=== PATIENT | female | born 1985 | race Caucasian/White ===

== ENCOUNTER 2017-12-26 17:32 | Outpatient (CLI) | payer BC ==
[~2017-12-26] VITALS: Ht 162.6 cm; Wt 107.5 kg
--- NOTE | 2017-12-26 18:04 | Progress Note ---
Progress Note Date of Service December 26, 2017. Progress Note 32 F P1011 at 38.6 weeks seen in L&D for decreased movement. Was seen in office yesterday and had NST which was Cat 1. No problems. Will place on monitor for NST. No leakage of fluid or bleeding. No headache or visual changes. BP stable. Cat 1 NST. Will discharge home and advised to continue kick counts.
[2017-12-26 18:48] VITALS: Ht 162.6 cm; Wt 107.5 kg
[2017-12-26] MEDS ORDERED: PRENTAB26 PO (18:52)
[2017-12-26] MEDS ORDERED: CHOL1CHW10 (18:52)
== END 2017-12-26 18:25 | disposition home or self-care (01) ==
LOC: C.LD 17:32 → C.OPB 17:32
PROVIDERS: ATTEND Obstetrics & Gynecology
DX: O36.8130 Decreased fetal movements, third trimester, not applicable or unspecified (principal); Z3A.38 38 weeks gestation of pregnancy

== ENCOUNTER 2018-01-03 06:42 | Inpatient (IN) | payer BC ==
[~2018-01-03] VITALS: Ht 162.6 cm; Wt 108.0 kg
[~2018-01-03 06:42] MED LIST: CHOL1CHW10; PRENTAB26 PO
[2018-01-07] MEDS ORDERED: LACTATED RINGER'S 1000ML 1,000 ML IV PRN (08:04)
[2018-01-07] MEDS ORDERED: LACTATED RINGER'S 1000ML 1,000 ML IV SCH (08:04)
[2018-01-07] MEDS ORDERED: PENICILLIN G POTASSIUM IV 6 MU in DEXTROSE 5% 250ML 250 ML IV ONE (08:15)
[2018-01-07 08:30] LABS: HEMOGLOBIN 10.7 g/dL (12.0-16.0); MEAN CELL VOLUME 88.6 fL (80-100); MEAN CORPUSCULAR HEMOGLOBIN 29.6 pg (25-34); MEAN CORPUSCULAR HGB CONC 33.4 g/dl (32-36); MEAN PLATELET VOLUME 9.4 fL (7.4-10.4); NUCLEATED RED BLOOD CELL ABS 0.07 K/uL (0-0); PLATELET COUNT 178 K/uL (130-400); RED CELL DISTRIBUTION WIDTH SD 51.3 fL (36.4-46.3); WHITE BLOOD COUNT 10.74 K/uL (4.8-10.8)
[2018-01-07] MEDS ORDERED: LACTATED RINGER'S 1000ML 500 ML IV PRN ×2 (08:55→14:58)
[2018-01-07 08:57] VITALS: Ht 162.6 cm; Wt 108.0 kg
[2018-01-07] MEDS ORDERED: OXYTOCIN 30 UNITS/500ML NSS IV PRN ×2 (09:00→19:15)
[2018-01-07] MEDS: PENICILLIN G POTASSIUM IV 3 MU in DEXTROSE 5% 100ML 100 ML IV PRN ×2 (12:46→16:31)
[2018-01-07] MEDS ORDERED: EpHEDrine SULFATE INJ 50 MG/ML AMP ONE (14:05)
[2018-01-07] MEDS ORDERED: BUPIVACAINE 0.25% 30 ML VIAL ONE ×2 (14:05→18:01)
[2018-01-07] MEDS ORDERED: FENTANYL 2MCG/ML ROPIV 1.25MG/ML 100ML BAG ONE (14:06)
[2018-01-07] MEDS ORDERED: FENTANYL CITRATE INJ 50 MCG/1 ML 2 ML VIAL ONE ×2 (14:06→18:09)
[2018-01-07] MEDS ORDERED: NALOXONE HCL INJ 1 MG in SODIUM CHLORIDE 0.9% 1000ML 1,000 ML IV PRN ×4 (14:58)
[2018-01-07] MEDS ORDERED: DiphenhydrAMINE HCL 50 MG/ML VIAL IV PRN (15:00)
[2018-01-07] MEDS ORDERED: METOCLOPRAMIDE HCL INJ 20 MG in SODIUM CHLORIDE 0.9% 50ML 50 ML IV PRN (15:00)
[2018-01-07] MEDS ORDERED: ONDANSETRON INJ 2 MG/ML 2 ML VIAL IV PRN (15:00)
[2018-01-07] MEDS ORDERED: PROMETHAZINE HCL INJ 12.5 MG in SODIUM CHLORIDE 0.9% 50ML 50 ML IV PRN (15:00)
[2018-01-07] MEDS ORDERED: NALBUPHINE HCL INJ 10 MG/ML AMP IV PRN (15:00)
[2018-01-07] MEDS ORDERED: EpHEDrine SULFATE INJ 50 MG/ML AMP IV PRN (15:00)
[2018-01-07] MEDS ORDERED: NALOXONE HCL INJ 0.4 MG/1 ML VIAL/CARP IV PRN (15:00)
[2018-01-07] MEDS ORDERED: FENTANYL 2MCG/ML ROPIV 1.25MG/ML 100ML BAG EPI PRN (15:00)
--- NOTE | 2018-01-07 18:17 | Anesthesiology Progress Note ---
Anesthesia Progress Note Date of Service January 07, 2018. Progress Notes Called by L&D nurse re: pt c/o more pain now. Pt seen and evaluated. Pain is more pressure like down on her pelvic area; baby station has moved from -3 to - 1. Epidural level at around T10. 100mcg of fentanyl given through her epidural along with 5ml of 0.25% bupivacaine. VSS.
[2018-01-07] MEDS ORDERED: LANOLIN OINT EXT PRN (19:15)
[2018-01-07] MEDS ORDERED: HYDROCORTISONE ACETATE 25 MG SUPP PR PRN (19:15)
[2018-01-07] MEDS ORDERED: DIPHTHERIA/TETANUS/PERTUSSIS 0.5 ML SYR/VIAL IM. ONE (19:15)
[2018-01-07] MEDS ORDERED: OXYCODONE/ACETAMINOPHEN 5-325 TAB PO PRN (19:15)
[2018-01-07] MEDS ORDERED: ACETAMINOPHEN 325 MG TAB PO PRN (19:15)
[2018-01-07] MEDS ORDERED: SUPERCREAM 0.870 % 15GM JAR EXT PRN (19:15)
[2018-01-07] MEDS ORDERED: BENZOCAINE 20% AER SPR 82.5 GM CAN EXT PRN (19:15)
[2018-01-07] MEDS: DOCUSATE SODIUM 100 MG CAP PO SCH (20:00)
--- NOTE | 2018-01-07 20:08 | DELIVERY SUMMARY ---
DATE OF OPERATION: 01/07/2018 TIME OF DELIVERY: 1846. DELIVERY OF PLACENTA: 1848. DELIVERY NOTE: The patient is a 32-year-old 3, para 1 at 40 weeks and 4 days gestation, who was admitted to labor and delivery on the morning of 01/07/2018 for a scheduled induction of labor secondary to being postdate. On admission, she was found to be 3 cm, 40% effaced and -3 station. She was begun on penicillin for GBS prophylaxis. Oxytocin per protocol has begun for labor induction. She received an epidural for anesthesia. Artificial rupture of membranes was performed at 1517 with a large amount of clear amniotic fluid noted. She reached complete dilation at 1834 with the desired push. The pushed to delivery at 1847. She delivered a viable female in the left occiput anterior position to a midline episiotomy. Nuchal cord x1 was reduced at delivery. The baby was then delivered and placed on the patient's abdomen. Cord was clamped x2 and cut. Apgars were 8 at 1 minute and 9 at 5 minutes. Please see nursing notes for further baby assessment. Cord blood was then obtained and intact placenta with 3-vessel cord was delivered at 184. Oxytocin infusion was then begun. The lower uterine segment and vagina were cleared of any blood clots and debris. Exploration of the perineum noted a midline episiotomy with no extensions. The episiotomy was repaired with 2-0 and 3-0 Vicryl sutures in layers. Excellent hemostasis was noted. No other lacerations were seen. Excellent sphincter tone was noted on digital rectal exam with no suture noted in the rectal wall. Estimated blood loss was 300 mL. All sponge, instrument, and needle counts were found to be correct x2. Both patient and baby tolerated the delivery well and were in recovery with stable vital signs. I attest to the content of the Intraoperative Record and any orders documented therein. Any exception s are noted below.
--- NOTE | 2018-01-07 20:33 | Anesthesia Procedure Note ---
Anesthesia Epidural Removal Nt Date & Time January 07, 2018 at 20:33 Vital Signs Pain Intensity: 9.0 Notes Mental Status: alert / awake / arousable, participated in evaluation Nausea / Vomiting: adequately controlled Pain: adequately controlled Airway Patency, RR, SpO2: stable & adequate BP & HR: stable & adequate Hydration State: stable & adequate Neuraxial Anesthesia: was administered Anesthetic Complications: no major complications apparent, pt satisfied with anesthetic care Epidural: removed without complications, with tip intact
[2018-01-07 21:00] VITALS: BP 111/78; PULSE 89; TEMP 36.7; O2SAT 100
[2018-01-08 00:05] VITALS: BP 118/71; PULSE 81; TEMP 37.3; O2SAT 97
[2018-01-08] MEDS: IBUPROFEN 600 MG TAB PO PRN ×5 (01:22→19:31)
[2018-01-08 04:00] VITALS: BP 108/69; PULSE 84; TEMP 36.9; O2SAT 97
[2018-01-08 06:29] LABS: HEMATOCRIT 26.7 % (37-47); HEMOGLOBIN 8.8 g/dL (12.0-16.0)
[2018-01-08 07:03] VITALS: BP 102/68; PULSE 84; TEMP 36.7
[2018-01-08] MEDS: DOCUSATE SODIUM 100 MG CAP PO SCH ×2 (07:52→19:31)
[2018-01-08] MEDS: PRENATAL VITAMIN TAB PO SCH (07:52)
[2018-01-08] MEDS: FERROUS SULFATE 325 MG TAB PO SCH (07:54)
--- NOTE | 2018-01-08 09:34 | OB/GYN Progress Note ---
KILN BURNER HELPER Progress Note Date of Service January 08, 2018. Subjective conversation w/ patient, physical exam Ambulation: limited ambulation Voiding: no voiding problems Passing Gas: No Diet Tolerance: Regular Diet Lochia: Small Feeding Type: Breast Feeding Notes: some passage of small clots some lightheadedness when getting up Review of Systems Constitutional: + weakness Objective Vital Signs Date Time Temp Pulse Resp B/P (MAP) Pulse Ox O2 Delivery O2 Flow Rate FiO2 01/08/18 08:00 Room Air 01/08/18 07:03 36.7 84 17 102/68 (79) 01/08/18 04:00 36.9 84 16 108/69 (82) 97 Room Air 01/08/18 00:05 37.3 81 16 118/71 (87) 97 Room Air 01/08/18 00:05 97 Room Air 01/07/18 21:00 36.7 89 18 111/78 (89) 100 Room Air 01/07/18 21:00 100 Room Air Physical Exam General Appearance: WELL-APPEARING Fundus: Firm Extremities: non-tender, normal inspection, no pedal edema, no calf tenderness Laboratory Results Last 24 Hours Test 01/08/18 06:18 01/08/18 09:09 Hemoglobin 8.8 g/dL Hematocrit 26.7 % Bedside Glucose 90 mg/dl Assessment and Plan Post- Day Number: 1 Continue Routine Care: repeat h/h tonight encourage fluids
[2018-01-08 11:05] VITALS: BP 121/82; PULSE 85; TEMP 36.6; O2SAT 97
[2018-01-08 14:30] VITALS: BP 119/77; PULSE 89; TEMP 36.7; O2SAT 98
[2018-01-08 18:18] LABS: HEMOGLOBIN 9.3 g/dL (12.0-16.0)
[2018-01-08] MEDS ORDERED: BISACODYL 5 MG TABEC PO SCH (20:00)
[2018-01-08 23:35] VITALS: BP 118/80; PULSE 81; TEMP 36.5; O2SAT 98
[2018-01-09] MEDS: IBUPROFEN 600 MG TAB PO PRN ×3 (02:30→10:51)
[2018-01-09 05:35] LABS: HEMOGLOBIN 8.3 g/dL (12.0-16.0); MEAN CELL VOLUME 89.6 fL (80-100); MEAN CORPUSCULAR HEMOGLOBIN 29.7 pg (25-34); MEAN CORPUSCULAR HGB CONC 33.2 g/dl (32-36); MEAN PLATELET VOLUME 8.9 fL (7.4-10.4); PLATELET COUNT 167 K/uL (130-400); RED CELL DISTRIBUTION WIDTH CV 16.2 % (11.5-14.5); RED CELL DISTRIBUTION WIDTH SD 52.8 fL (36.4-46.3)
[2018-01-09] MEDS ORDERED: BISACODYL 10 MG SUPP PR PRN (07:00)
[2018-01-09] MEDS: DOCUSATE SODIUM 100 MG CAP PO SCH (07:59)
[2018-01-09] MEDS: FERROUS SULFATE 325 MG TAB PO SCH (07:59)
[2018-01-09] MEDS: PRENATAL VITAMIN TAB PO SCH (07:59)
[2018-01-09 08:00] VITALS: BP 103/67; PULSE 75; TEMP 36.6
--- NOTE | 2018-01-09 08:43 | OB/GYN Progress Note ---
FIELD SAMPLING TECHNICIAN Progress Note Date of Service January 09, 2018. Subjective conversation w/ patient, physical exam Ambulation: ambulating normally Voiding: no voiding problems Passing Gas: Yes Diet Tolerance: Regular Diet Lochia: Moderate Pain: 4/10 Notes: Doing well, no concerns. Pain well controlled. Tolerating regular diet. Ambulating without difficulty. Objective Vital Signs Date Time Temp Pulse Resp B/P (MAP) Pulse Ox O2 Delivery O2 Flow Rate FiO2 01/09/18 08:00 36.6 75 20 103/67 (79) 01/08/18 23:35 Room Air 01/08/18 23:35 36.5 81 18 118/80 (93) 98 Room Air 01/08/18 14:30 98 Room Air 01/08/18 14:30 36.7 89 18 119/77 (91) 98 Room Air 01/08/18 11:05 36.6 85 20 121/82 (95) 97 Room Air Physical Exam General Appearance: WELL-APPEARING Respiratory/Chest: chest non-tender, lungs clear Cardiovascular: regular rate, rhythm Abdomen: normal bowel sounds, soft Fundus: Firm Extremities: normal range of motion, non-tender, no calf tenderness Laboratory Results Last 24 Hours Test 01/08/18 09:09 01/08/18 18:05 01/09/18 05:16 Bedside Glucose 90 mg/dl Hemoglobin 9.3 g/dL 8.3 g/dL Hematocrit 28.0 % 25.0 % White Blood Count 13.70 K/uL Red Blood Count 2.79 M/uL Mean Corpuscular Volume 89.6 fL Mean Corpuscular Hemoglobin 29.7 pg Mean Corpuscular Hemoglobin Concent 33.2 g/dl RDW Standard Deviation 52.8 fL RDW Coefficient of Variation 16.2 % Platelet Count 167 K/uL Mean Platelet Volume 8.9 fL Assessment and Plan Post- Day Number: 2 Continue Routine Care: -D/C home today -F/U in 6 weeks.
[2018-01-09] MEDS ORDERED: MTR600X PO (08:44)
--- NOTE | 2018-01-09 08:45 | Discharge Instructions ---
Discharge Instructions Date of Service January 09, 2018. Admission Reason for Admission: Induction Discharge Discharge Diagnosis / Problem: Vaginal Delivery Discharge Goals Goal(s): Routine recovery after delivery Medications Continue Dispensed Medications: supercream, dermaplast, tucks, lansinoh Activity Recommendations Activity Limitations: per Instructions/Follow-up section . Instructions / Follow-Up Instructions / Follow-Up ACTIVITY RECOMMENDATIONS: * Gradual return to full activity over the next 2-3 weeks. * No lifting - nothing heavier than baby over the next 2-3 weeks. * Do not engage in vigorous exercise, sexual activity or sports until cleared by your physician. * Do not drive or operate any motorized equipment until cleared by your physician. * You may shower/bathe daily. BREAST CARE: If you are not breast feeding: * Wear a supportive bra 24 hours a day for one to two weeks. * Avoid stimulating your breasts and nipples as much as possible during the first few weeks after delivery. * When taking a shower, have the warm water hit your back, not breasts. * When your breasts feel full, apply ice packs. Usually three to four times a day helps ease the discomfort. * Take a mild pain medication (Tylenol/Motrin) when you are uncomfortable. If breast feeding: * Use breast milk to lubricate nipples. Lansinoh cream may be used for sore nipples. You do not need to remove cream prior to breast feeding. If using a different brand of cream, check the label for directions regarding removal of cream prior to nursing. * Wear a supportive bra. * If having problems with breasts or breast feeding, call a software developer consultant or your health care provider. EPISIOTOMY CARE: After delivery, if you have an episiotomy (stitches), the following steps will ease discomfort and aid healing. * For the first 24 hours after delivery, place ice packs next to your episiotomy to help reduce swelling. * After the first 24 hour-period, sitz baths, either portable or in the tub, are suggested. A shower with a shower arm sprayed over the episiotomy may be comforting. * Nancy care should be done after each voiding and bowel movement. Squirt warm water from a plastic bottle over the perineum (region of the body between the anus and urinary opening) and pat dry. * Use Dermoplast to ease discomfort. Shake container. [place] directly over the episiotomy. * Place a Tucks on a clean sanitary pad next to your episiotomy. OVER THE COUNTER MEDICATION: * For discomfort or pain, you may use Acetaminophen (Tylenol), Ibuprofen (Advil ), or Naproxen (Aleve) following the package directions. * For constipation you may use Colace following the package directions. SPECIAL CARE INSTRUCTIONS: When you are discharged from the hospital, it is important for you to follow the instructions listed below: * During the first week at home, you should be able to care for yourself and your baby. In addition, the usual light household activities are encouraged. * Limit your activities to the way you feel. Do not try to clean the house or move furniture. Be sensible. * If you actively engage in sports and have done so up until the time of your delivery, you may resume these activities as soon as you feel able. This may take up to one month or even longer. Use good judgment. * Continue to take your vitamins for at least six weeks after the of your baby. * Your diet need not be limited unless you were on a special diet before your delivery. Breast-feeding mothers need around 2500 calories per day and at least 64-80 ounces of fluid per day (8 to 10 glasses). * You should eat foods from the four major food groups. Crash diets or fad diets are to be avoided. Eating lean meats, fresh fruits and vegetables, low-fat dairy products, high fiber foods and a regular exercise program, will help you get back to your pre- weight without putting your health at risk. * Constipation is sometimes a problem after delivery. Take a mild laxative as needed. If breast feeding, Milk of Magnesia is acceptable to use. You may use a suppository or Fleets enema if no episiotomy. * A daily shower or tub bath is suggested. Be sure to thoroughly and gently dry the perineum. * A bloody vaginal discharge will usually continue until around four weeks post . A small amount of bleeding may continue for as long as six weeks. Vaginal discharge changes from the bright red bleeding after delivery to pink then brownish and finally yellowish-pink before becoming white and disappearing. * Bleeding may increase with activity. Your first period may come in 4-8 weeks. If you are breast feeding, your period may be delayed even longer. * [place] (sex) can begin whenever both you and your partner feel comfortable and do not have any form of genital infection. It is recommended that you wait until after your return appointment and discuss with your physician. If you have questions, please talk to your health care practitioner. A condom should be used to prevent infection and . * Foreplay, gentle intercourse and lubrication is very important the first several times to prevent pain. A water-based lubricant such as K-Y jelly or Astroglide may be used. * Tampons may be used six weeks after delivery. * Douching should be avoided for 6 weeks after delivery. * If you have RH negative blood and your baby is RH positive, you will receive RHOGAM by injection prior to discharge. The nurse will give you a card to keep with you that has the date and place that you received RHOGAM after delivery. * During your care, you had a Rubella screen done to check for the presence of rubella antibodies in your blood. If your test was negative, you will receive a Rubella vaccine prior to discharge. This vaccine may cause a fever, soreness at the injection site and flu-like symptoms. If these symptoms persist, notify your health care practitioner. is not advised for three months after a Rubella vaccine. There is a higher chance of having a baby with defects if conceived within three months of getting the vaccine. * If you were discharged 24 hours from delivery or before 48 hours: Visiting nurses will come to your home 48 hours after discharge to assess you and your baby. The visiting nurse will meet with you while you are in the hospital to arrange a time and get directions to your home. * Verbalizes understanding of car seat law as reviewed with patient nursing. * Car Seat hand-out given and reviewed with patient by nursing. * Shaken baby information reviewed with patient by nursing. Call you doctor if: * Heavy bleeding (saturating several pads an hour) or passing clots the size of your fist. * A fever >101 degrees F (38.3 degrees C) on two occasions four hours apart and/or chills. * Unusual pain in the pelvic or vaginal areas. * "Baby Blues" lasting longer than two weeks. If you have any questions or concerns, call your health care practitioner at . FOLLOW-UP VISIT: * Please call the office at to schedule a 6 week examination. It is important you keep this appointment. * It is important for you to make arrangements for either yearly or twice yearly check-ups thereafter. Current Hospital Diet Patient's current hospital diet: Regular OB Diet Discharge Diet Recommended Diet: Regular OB Diet Pending Studies Studies pending at discharge: no Medical Emergencies . Who to Call and When: Medical Emergencies: If at any time you feel your situation is an emergency, please call 911 immediately. . Non-Emergent Contact Non-Emergency issues call your: Primary Care Provider, Apparel Designer . . "Provider Documentation" section prepared by Alcon Witt. .
[2018-01-09 11:19] VITALS: BP_DIAS 67; PULSE 75; TEMP 36.6
== END 2018-01-09 11:22 | disposition home or self-care (01) | DRG 775 ==
LOC: C.LD 01-07 07:34 → C.OBG 01-07 21:04
PROVIDERS: ADMIT Obstetrics & Gynecology; ATTEND Obstetrics & Gynecology
PROC: 3E033VJ Introduction of Other Hormone into Peripheral Vein, Percutaneous Approach (ICD-10-PCS; principal; 2018-01-07)
PROC: 0W8NXZZ Division of Female Perineum, External Approach (ICD-10-PCS; principal; 2018-01-07)
PROC: 10E0XZZ Delivery of Products of Conception, External Approach (ICD-10-PCS; principal; 2018-01-07)
DX: O48.0 Post-term pregnancy (principal); Z37.0 Single live birth; O69.81X0 Labor and delivery complicated by cord around neck, without compression, not applicable or unspecified; Z3A.40 40 weeks gestation of pregnancy

== ENCOUNTER 2019-10-21 10:09 | Inpatient (IN) ==
--- NOTE | 2019-10-21 13:36 | History and Physical Report ---
DATE OF ADMISSION: 10/21/2019 CHIEF COMPLAINT: Vaginal bleeding for 3 days, intrauterine , 37 weeks 5 days gestation. HISTORY OF PRESENT ILLNESS: The patient is a 34-year-old 4, para 2, who has had 1 first trimester spontaneous AB. General health is good. She is just on vitamins. She did have a repeat glucose tolerance test within the last week which she failed. She was given a diagnosis of gestational diabetes. Her obstetrical history is as follows: In 2012, she had a 7-pound 8 ounce female, spontaneous vaginal delivery, induction for low biophysical profile of 24 hours, pushed for 30 minutes. Second delivery in 2018 girl, 9 pounds 14 ounces a day or two over her due date also induced. She did not have any problems getting the baby out or with shoulder dystocia. Present has been uneventful until she started to have bleeding. She has had bleeding for the last 3 days. On Saturday, she came into the hospital and she was evaluated with an ultrasound placed on a monitor, sent home. She bled the next day, she was placed on a monitor. She is returning today for the third time. Previous 2 days, her cervix, she states was closed. On exam today, she had extremely heavy bleeding at home, passed a large amount of blood, came into the office and they checked her cervix and said she was dilated. On admission, I checked her cervix, it was vertex presentation. She was a good 4 cm with bulging membranes. PAST MEDICAL HISTORY: She has 2 girls in good health. ALLERGIES: STATES SHE IS ALLERGIC TO BACTRIM. PAST SURGICAL HISTORY: Had wisdom teeth removed on no chronic pills or medications. SOCIAL HISTORY: No smoking, no alcohol intake. Works for [employer]. FAMILY HISTORY: Mom 64 in good health. Father 66, has high blood pressure and heart disease. Two brothers in good health. REVIEW OF SYSTEMS: HEAD: No symptoms of frequent or severe headaches. EYES: No symptoms of blurred vision, double vision. EARS: No symptoms of frequent ear infection, difficulty hearing. PHYSICAL EXAMINATION: GENERAL: The patient is a well-developed, well-nourished 34-year-old white female, alert, oriented x3 and cooperative in no acute distress, appears stated age. EYES: Conjunctivae are pink. Sclerae white and evidence of jaundice. EARS: Had normal light reflex bilaterally. HEART: Had regular rhythm. S1, S2 are normal. CHEST: Clear to auscultation and percussion. No wheezes, rales or rhonchi appreciated. HEART: Had regular rhythm. S1, S2 are normal. ABDOMEN: Revealed a term size fetus. No CVA tenderness. There is no calf tenderness. PELVIC: Revealed large amount of dried blood on exam, vertex presentation, -3 station. Cervix 4 cm with bulging membranes. IMPRESSIONS OF THIS CASE: Gestestional diabetes, intrauterine 37 weeks 5 days and active labor.
[2019-10-21] MEDS ORDERED: OXYTOCIN 30 UNITS/500 ML BAG IV PRN ×2 (15:46→16:07)
[2019-10-21] MEDS ORDERED: LACTATED RINGER'S 1,000 ML IV PRN (16:07)
[2019-10-21 16:30] LABS: Hematocrit (blood only) 33.6 % (37-47); Hemoglobin 11.5 g/dL (12.0-16.0); Mean Corpuscular Hemoglobin 32.9 pg (25-34); Mean Platelet Volume 9.8 fL (7.4-10.4); Platelet Count 168 K/uL (130-400); RDW Standard Deviation 56.2 fL (36.4-46.3); White Blood Count 10.95 K/uL (4.8-10.8)
[2019-10-21 17:03] LABS: Mean Corpuscular Hgb Conc 34.2 g/dL (32-36)
--- NOTE | 2019-10-21 17:57 | Anesthesiology Consultation ---
Date of Service October 21, 2019 Assessment & Plan (1) Encounter for pre-operative examination: Chart Review Chart Review: Acceptable Risk for Surgery Consults Requested none ASA [id number] Proposed Anesthesia Anesthesia Type: General and Spinal Risk / Benefits Reviewed With: PT / POA / Parent / Guardian, Accepts Plan and Informed Consent Obtained History Surgery Operation Date: 10/21/19 17:50 Proposed Procedures p Section in LD - Elio Muniz MD Height/Weight Height: 5 ft 4 in Weight: 106.594 kg Allergies Allergy/AdvReac Type Severity Reaction Status Date / Time sulfamethoxazole Allergy Hives Verified 10/21/19 10:21 [From Bactrim] trimethoprim [From Bactrim] Allergy Hives Verified 10/21/19 10:21 Medications Home Medications Medication Instructions Recorded Confirmed Last Taken cholecalciferol (vitamin D3) 25 mcg PO DAILY 10/19/19 10/21/19 10/21/19 08:00 [Vitamin D3] docusate sodium [Colace] 100 mg PO DAILY 10/19/19 10/21/19 10/20/19 21:00 ferrous sulfate [Iron (ferrous 325 mg PO DAILY 10/19/19 10/21/19 10/21/19 08:00 sulfate)] magnesium 400 mg PO BID 10/19/19 10/21/19 10/21/19 08:00 vit-iron fum-folic ac 1 tab PO DAILY 10/19/19 10/21/19 10/20/19 21:00 [ Vitamin] Active Medications Generic Name Dose Route Start Last Admin Trade Name Freq PRN Reason Stop Dose Admin Oxytocin 30 units in 500 mls @ 4 mls/hr 10/21/19 15:46 10/21/19 17:00 Pitocin IV 10/23/19 15:45 0.24 units/hr .Q24H PRN 4 mls/hr Labor Induction/Augmentation Titration Protocol 0.24 UNITS/HR Lactated Ringer's 1,000 mls @ 125 mls/hr 10/21/19 16:07 10/21/19 16:09 Lr IV 10/23/19 16:06 125 mls/hr .Q8H PRN Administration L&D Protocol Protocol NPO Date Last Intake of Fluids: 10/21/19 Time Last Intake of Fluids: 13:30 Date Last Intake of Solids: 10/21/19 Time Last Intake of Solids: 13:30 Past Medical History Medical History (Updated 10/21/19 @ 17:57 by Zev Neves DO) Gestational diabetes mellitus (GDM) No pertinent past medical history Exercise / Class Metabolic Activity II 4-5 Yardwork/Stairs/Walk up hill Past Surgical History Surgical History [place] teeth extracted Past Anesthesia History No Hx of Anesthesia Complications and No Family Hx of Anesthesia Complications History of PONV No Hx of PONV and No Hx of Motion Sickness Social History Smoking Status: Never smoker Hx Alcohol Use: No Hx Substance Use: No substance use type: does not use Physical Exam Vital Signs Last Vital Signs Temp 98.6 F 10/21/19 15:55 Pulse 74 10/21/19 17:07 Resp 16 10/21/19 15:55 BP 133/79 10/21/19 17:07 ENMT Mouth: no dentition abnormality Thyromental Distance: > or= 3.5 Finger Breadths Mallampati Class: II Neck normal visual inspection Respiratory normal respiratory effort Auscultation: lungs clear to auscultation bilaterally Cardiovascular Rate/Rhythm: regular rate and regular rhythm Testing Laboratory Results 10/21/19 16:17 10/21/19 17:03 POC Glucose 91
[2019-10-21] MEDS ORDERED: fentaNYL citrate 100 MCG/2 ML VIAL ONE ×2 (17:58→18:33)
[2019-10-21] MEDS ORDERED: cefOXitin 2,000 MG in DEXTROSE 5% 50 ML IV SCH (18:00)
[2019-10-21] MEDS ORDERED: MIDAZOLAM HCL 1 MG/ML 2ML VIAL ONE (18:02)
[2019-10-21] MEDS ORDERED: OXYTOCIN 10 UNITS/ML VIAL ONE ×4 (18:19→18:43)
[2019-10-21] MEDS ORDERED: METHYLERGONOVINE MALEATE 0.2 MG/ML AMP ONE (18:19)
[2019-10-21] MEDS ORDERED: PROPOFOL IV EMULSION 10 MG/ML 20 ML VIAL IV ONE (18:23)
[2019-10-21] MEDS ORDERED: SUCCINYLCHOLINE CHLORIDE 20 MG/ML 10 ML VIAL ONE (18:23)
[2019-10-21] MEDS ORDERED: ONDANSETRON INJ 2 MG/ML 2 ML VIAL IV PRN ×2 (18:25→19:14)
[2019-10-21] MEDS ORDERED: fentaNYL citrate 100 MCG/2 ML VIAL IV PRN (18:25)
[2019-10-21] MEDS ORDERED: ATROPINE SULFATE 0.1 MG/ML 10ML SYR IV PRN (18:25)
[2019-10-21] MEDS ORDERED: ePHEDrine sulfate 50 MG/ML AMP IV PRN (18:25)
--- NOTE | 2019-10-21 19:13 | Post Operative Brief Note ---
Immediate Post Op Note v1 Date of Surgery October 21, 2019 Pre & Post Diagnosis Operation Date: 10/21/19 17:50 Pre-Op Diagnosis: Hemmorhage. Partial abruption. Post-Op Diagnosis: Same delivered live female I identified the patient and participated in the time-out.: Yes Procedure Operation Date: 10/21/19 17:50 Actual Procedures p Section in LD(Bilateral) - Elio Muniz MD Surgeon Elio Muniz MD Drain Technician nurse Estimated Blood Loss 800 Findings Consistent with Post-Op Diagnosis plcental abruption Fluids 1800 ml Specimens placenta Drains [place] Catheter (placed prior to coming to OR in LD) Anesthesia Type General Disposition Accompanied Patient To Recovery: No Disposition: Recovery Room
[2019-10-21] MEDS ORDERED: SENNA 8.6 MG TAB PO PRN (19:14)
[2019-10-21] MEDS ORDERED: MAGNESIUM HYDROXIDE SUSP 30 ML UDC PO PRN (19:14)
[2019-10-21] MEDS ORDERED: ZOLPIDEM TARTRATE 5 MG TAB PO PRN (19:14)
[2019-10-21] MEDS ORDERED: HYDROCORTISONE ACETATE 25 MG SUPP PR PRN (19:14)
[2019-10-21] MEDS ORDERED: DIPHTHERIA/TETANUS/PERTUSSIS 0.5 ML SYR/VIAL IM ONE (19:14)
[2019-10-21] MEDS ORDERED: BENZOCAINE 20% AER SPR 82.5 GM CAN EXT PRN (19:14)
[2019-10-21] MEDS ORDERED: MEPERIDINE HCL 50 MG/ML CARP IV PRN (19:14)
[2019-10-21] MEDS ORDERED: DiphenhydrAMINE HCL 50 MG/ML VIAL IV PRN (19:14)
[2019-10-21] MEDS ORDERED: PROMETHAZINE HCL 25 MG in SODIUM CHLORIDE 0.9% 50 ML IV PRN (19:14)
[2019-10-21] MEDS ORDERED: SUPERCREAM 0.870% 15 GM JAR EXT PRN (19:14)
[2019-10-21] MEDS ORDERED: LACTATED RINGER'S 1,000 ML IV SCH (19:15)
[2019-10-21] MEDS ORDERED: OXYTOCIN 30 UNITS in D5W AND LACTATED RINGERS 1,000 ML IV SCH (19:15)
[2019-10-21] MEDS: KETOROLAC 30 MG/ML VIAL IV PRN (19:35)
--- NOTE | 2019-10-21 19:43 | Anesthesiology Progress Note ---
Date of Service October 21, 2019 Anesthesia Post Procedure Vital Signs Vital Signs: Temp Pulse Resp BP Pulse Ox 10/21/19 19:41 54 L 100 10/21/19 19:36 55 L 122/75 100 10/21/19 19:31 63 94 10/21/19 19:30 61 93 10/21/19 19:26 56 L 86 L 10/21/19 19:25 56 L 120/56 L 10/21/19 19:24 58 L 93 10/21/19 19:23 65 114/56 L 10/21/19 19:21 66 100 10/21/19 19:19 68 109/59 L 10/21/19 19:16 86 84 L 10/21/19 17:07 74 133/79 10/21/19 15:55 98.6 F 82 16 134/71 10/21/19 14:29 97.9 F 65 18 124/64 10/21/19 10:20 68 125/72 10/21/19 10:16 98.6 F 16 Transfer of Care Handoff Completed per policy Notes Mental Status: alert / awake / arousable and participated in evaluation Patient Amnestic to Procedure: Yes Nausea / Vomiting: adequately controlled Pain: adequately controlled Airway Patency, RR, SpO2: stable & adequate BP & HR: stable & adequate Hydration State: stable & adequate Anesthetic Complications: no major complications apparent and Pt Satisfied with anesthetic care
[2019-10-21] MEDS: HYDROmorphone INJ 1 MG/ML SYRINGE IV PRN ×8 (20:02→20:39)
[2019-10-21 20:11] LABS: Base Excess Cord Arterial Bld -1.4 mEq/L (-9-1.8); CO2 Cord Arterial Blood 55 mmHg (39.1-73.5); HCO3 Cord Arterial Blood 26 mmol/L (19.7-28.5); PO2 Cord Arterial Blood 26 mmHg (4.1-31.7); pH Cord Arterial Blood 7.29 (7.1-7.38)
[2019-10-21 20:12] LABS: Base Excess Cord Venous Blood -1.2 mEq/L (-7.7-1.9); Cord Venous Blood HCO3 25 mmol/L (18.4-26.8); Cord Venous Blood PCO2 45 mmHg (30.4-57.2); Cord Venous Blood PO2 38 mmHg (14.1-43.3); Cord Venous Blood pH 7.35 (7.20-7.44); Oxygen Sat Cord Arterial Blood < 60.0 % (<60)
[2019-10-21] MEDS ORDERED: OXYTOCIN 10 UNITS/ML VIAL IM ONE (20:25)
[2019-10-21] MEDS: DOCUSATE SODIUM 100 MG CAP PO SCH (21:01)
[2019-10-21] MEDS: SIMETHICONE 80 MG CHEW PO SCH (21:01)
[2019-10-21 23:00] LABS: Hematocrit (blood only) 30.2 % (37-47); Hemoglobin 10.3 g/dL (12.0-16.0)
--- NOTE | 2019-10-22 03:24 | Operative Report ---
DATE OF OPERATION: 10/21/2019 PROCEDURE: Stat low segment section. INDICATIONS FOR SURGERY: Hemorrhage, partial abruption. PREOPERATIVE DIAGNOSES: Intrauterine 37 weeks 5 days, ____ hemorrhage, partial abruption. POSTOPERATIVE DIAGNOSES: Intrauterine 37 weeks 5 days, ____ hemorrhage, partial abruption, delivered live infant. SURGEON: Ciro Muniz MD. HALL WORKER: OR nurse. ESTIMATED BLOOD LOSS: 800 mL. ANESTHESIA: General intubational. OPERATIVE FINDINGS AND PROCEDURE: The patient was brought to the OR table, correctly identified by armband and conversation. The patient started hemorrhaging in a room. When she was brought over, we promptly put in a Valdez catheter, compression stockings, painted the abdomen with Betadine, draped in usual sterile fashion. General anesthesia was administered and we quickly entered the abdomen through a Pfannenstiel incision, it was carried down to the anterior fascia by sharp dissection. Fascia was incised transversely, from underlying muscle by blunt and sharp dissection. Recti muscles were in the midline exposing the peritoneum, which was carefully raised and entered. Incision was made above the vesicouterine fold. The lower uterine segment was scarred with a knife and then entered bluntly with the scissors. A lot of bloody amniotic fluid was seen at this time along with part of the placenta delivered through the incision. There was a cord around the neck. Then the was delivered with the vectis retractor. Cord was clamped and cut and the was attended to by the regional manager, Dr. Muhammad, who was scrubbed and present at the time of delivery. We sent a piece of cord for gases with a cord blood. Placenta was removed manually. We could see dark clotted area against the uterine surface indicative of partial abruption. We wiped the uterine cavity clean with a clean sponge. Uterus, tubes and ovaries were brought out through the incision. We approximated the lower uterine defect. Myometrium was approximated with continuous interlocking suture of chromic. Then, a layer was approximated over this with a heavy Vicryl and then about 4 interrupted [id number] sutures of Vicryl was used to complete hemostasis of the uterine defect. Then, we used a 3-0 chromic to approximate the peritoneal edges and bladder flap. Hemostasis at this time was excellent. We cleaned the abdomen of all blood clots and debris. We reinserted uterus, tubes and ovary into the abdomen, did a careful anatomical approximation of the anterior abdominal wall. Peritoneum was closed with a mattress suture of chromic catgut. Recti muscles were approximated with interrupted [id number] suture of chromic catgut. The fascia was closed with continuous interlocking suture of Vicryl on each side, tied in the midline. SubQ was approximated with a running plain and skin edges approximated with staple clips. I attest to the content of the Intraoperative Record and any orders documented therein. Any exception s are noted below.
[2019-10-22] MEDS: KETOROLAC 30 MG/ML VIAL IV PRN (05:53)
[2019-10-22 06:52] LABS: Mean Corpuscular Hgb Conc 34.5 g/dL (32-36); Mean Corpuscular Volume 95.7 fL (80-100); Mean Platelet Volume 9.7 fL (7.4-10.4); Platelet Count 156 K/uL (130-400); RDW Coefficient of Variation 16.3 % (11.5-14.5); RDW Standard Deviation 57.2 fL (36.4-46.3); Red Blood Count 3.03 M/uL (4.2-5.4); White Blood Count 10.07 K/uL (4.8-10.8)
[2019-10-22 07:23] LABS: Basophils # (auto) 0.01 K/uL (0-0.2); Basophils % (auto) 0.1 %; Eosinophils # (auto) 0.03 K/uL (0-0.5); Eosinophils % (auto) 0.3 %; Immature Granulocytes # (auto) 0.04 K/uL (0.00-0.02); Immature Granulocytes % (auto) 0.4 %; Lymphocytes # (auto) 1.91 K/uL (1.2-3.4); Monocytes # (auto) 0.43 K/uL (0.11-0.59); Monocytes % (auto) 4.3 %; Neutrophils # (auto) 7.65 K/uL (1.4-6.5); Neutrophils % (auto) 75.9 %
[2019-10-22] MEDS: DOCUSATE SODIUM 100 MG CAP PO SCH ×2 (08:01→21:05)
[2019-10-22] MEDS: PRENATAL VITAMIN 1 TAB PO SCH (08:03)
[2019-10-22] MEDS: SIMETHICONE 80 MG CHEW PO SCH ×4 (08:04→21:09)
[2019-10-22] MEDS: FERROUS SULFATE 325 MG TAB PO SCH (08:04)
--- NOTE | 2019-10-22 09:17 | Obstetrical Progress Note ---
Date of Service October 22, 2019 Assessment & Plan Admission and Anticipated Discharge Date Admission Date: October 21, 2019 Subjective Patient is seen and examined. She feels sore and tired. Lower right rib pain with deep breathing only Pain is under control with IV meds, has not taken oral meds yet Ambulated to BR without dizziness Voiding without difficulty Tolerating regular diet with out N&V Flatus Neg BM neg Bleeding is minimal No fever/ chills/ CP/ SOB/ N&V/ Leg pain Vital Signs Temp Pulse Pulse Resp BP BP Pulse Ox 10/22/19 03:20 36.4 C L 65 18 116/74 10/21/19 23:00 36.6 C 62 16 103/68 92 10/21/19 22:26 77 96 10/21/19 22:21 80 97 10/21/19 22:20 36.7 C 77 20 157/87 H 10/21/19 22:16 65 97 10/21/19 22:11 58 L 98 10/21/19 22:08 56 L 92 10/21/19 22:07 56 L 171/99 H 10/21/19 22:06 55 L 96 10/21/19 22:02 60 94 10/21/19 22:01 55 L 95 10/21/19 21:57 58 L 94 10/21/19 21:56 57 L 96 10/21/19 21:52 54 L 93 10/21/19 21:51 57 L 96 10/21/19 21:50 36.6 C 20 10/21/19 21:47 56 L 162/84 H 10/21/19 21:46 56 L 96 10/21/19 21:41 62 97 10/21/19 21:36 65 98 10/21/19 21:31 55 L 97 10/21/19 21:26 56 L 97 10/21/19 21:24 73 93 10/21/19 21:21 59 L 98 10/21/19 21:20 60 20 157/98 H 10/21/19 21:16 65 99 10/21/19 21:11 57 L 97 10/21/19 21:10 61 152/89 H 10/21/19 21:06 59 L 97 10/21/19 21:01 60 97 10/21/19 21:00 61 140/69 10/21/19 20:56 67 98 10/21/19 20:51 55 L 99 10/21/19 20:50 67 20 166/77 H 98 10/21/19 20:46 54 L 99 10/21/19 20:41 61 100 10/21/19 20:40 59 L 139/83 10/21/19 20:36 66 100 10/21/19 20:31 54 L 97 10/21/19 20:30 51 L 128/72 10/21/19 20:26 53 L 98 10/21/19 20:21 59 L 138/73 96 10/21/19 20:20 36.4 C L 54 L 20 99 10/21/19 20:16 53 L 100 10/21/19 20:11 53 L 100 10/21/19 20:10 66 20 124/74 10/21/19 20:06 52 L 100 10/21/19 20:01 53 L 100 10/21/19 20:00 53 L 18 122/73 100 10/21/19 19:56 61 123/78 100 10/21/19 19:51 52 L 100 10/21/19 19:50 20 10/21/19 19:46 55 L 100 10/21/19 19:45 51 L 123/76 10/21/19 19:41 54 L 100 10/21/19 19:40 20 10/21/19 19:36 55 L 122/75 100 10/21/19 19:31 63 94 10/21/19 19:30 61 20 93 10/21/19 19:26 56 L 86 L 10/21/19 19:25 56 L 120/56 L 10/21/19 19:24 58 L 93 10/21/19 19:23 65 114/56 L 10/21/19 19:21 66 100 10/21/19 19:20 35.7 C L 55 L 20 122/75 100 10/21/19 19:19 68 109/59 L 10/21/19 19:16 86 84 L 10/21/19 17:07 74 133/79 10/21/19 15:55 37.0 C 82 16 134/71 10/21/19 14:29 36.6 C 65 18 124/64 10/21/19 10:20 68 125/72 10/21/19 10:16 37.0 C 16 Intake and Output 10/21/19 10/22/19 10/22/19 22:59 06:59 14:59 Intake Total 2864.90 / 2864.90 Output Total 750 / 1950 1200 / 1950 Balance 2114.90 / 914.90 -1200 / 914.90 Intake: IV 1064.90 / 1064.90 Lr 1,000 ml @ 125 mls/hr IV . 1000.00 / 1000.00 Q8H PRN Rx#:[id number] PITOCIN 30 units In 500 ml @ 0. 4.9 / 4.9 24 UNITS/HR 4 mls/hr IV .Q24H PRN Rx#:[id number] Mefoxin 2,000 mg In D5w 50 ml @ 60 / 60 100 mls/hr IV PREOP THALIA Rx#: [id number] IV Perioperative 1800 / 1800 Output: Urine 200 / 200 Urine Amount (Catheter) 550 / 1750 1200 / 1750 Valdez/Indwelling 550 / 1750 1200 / 1750 Other: Weight 106.594 kg Pulse ox : 97 % in RA, Pulse 77 PE: General: Alert, orientedx3, NAD CVS: S1S2 RRR Lungs; CTAB Abd: soft, appropriately tender, ND, BS+, fundus firm, below Umbilicus Incision/ Dressing: Clean, dry, intact Perineum intact, Lochia rubra minimal Ext; NT, no edema, Homans sign negative BL AP: 34 yo s/p C Section yesterday evening, pod# 0 VSS Afebrile doing well Will start oral pain meds Continue to monitor closely Encourage ambulation, PO intake All questions were answered Results & Data ([facility]) Vital Signs (Past 12 Hours) Vital Signs Temp Pulse Pulse Resp BP BP Pulse Ox 10/22/19 03:20 36.4 C L 65 18 116/74 10/21/19 23:00 36.6 C 62 16 103/68 92 10/21/19 22:26 77 96 10/21/19 22:21 80 97 10/21/19 22:20 36.7 C 77 20 157/87 H 10/21/19 22:16 65 97 10/21/19 22:11 58 L 98 10/21/19 22:08 56 L 92 10/21/19 22:07 56 L 171/99 H 10/21/19 22:06 55 L 96 10/21/19 22:02 60 94 10/21/19 22:01 55 L 95 10/21/19 21:57 58 L 94 10/21/19 21:56 57 L 96 10/21/19 21:52 54 L 93 10/21/19 21:51 57 L 96 10/21/19 21:50 36.6 C 20 10/21/19 21:47 56 L 162/84 H 10/21/19 21:46 56 L 96 10/21/19 21:41 62 97 10/21/19 21:36 65 98 10/21/19 21:31 55 L 97 10/21/19 21:26 56 L 97 10/21/19 21:24 73 93 10/21/19 21:21 59 L 98 10/21/19 21:20 60 20 157/98 H 10/21/19 21:16 65 99
[2019-10-22] MEDS: IBUPROFEN 600 MG TAB PO PRN ×4 (09:33→21:10)
[2019-10-22] MEDS: OXYCODONE/ACETAMINOPHEN 5mg/325mg TAB PO PRN ×4 (09:38→21:10)
[2019-10-22] MEDS ORDERED: bisacodyL 5 MG TABEC PO SCH (20:00)
[2019-10-23] MEDS: OXYCODONE/ACETAMINOPHEN 5mg/325mg TAB PO PRN ×4 (01:35→21:04)
[2019-10-23] MEDS: IBUPROFEN 600 MG TAB PO PRN ×4 (01:35→21:04)
[2019-10-23 06:22] LABS: Hematocrit (blood only) 24.3 % (37-47); Hemoglobin 8.2 g/dL (12.0-16.0)
[2019-10-23] MEDS: DOCUSATE SODIUM 100 MG CAP PO SCH ×2 (07:55→20:41)
[2019-10-23] MEDS: SIMETHICONE 80 MG CHEW PO SCH ×4 (07:56→20:41)
[2019-10-23] MEDS: PRENATAL VITAMIN 1 TAB PO SCH (07:56)
[2019-10-23] MEDS: FERROUS SULFATE 325 MG TAB PO SCH (07:56)
--- NOTE | 2019-10-23 10:43 | Surgery Progress Note ---
Date of Service October 23, 2019 Subjective POD#2 stable less pain today tolerating diet passing gas ambulating well Physical Exam Constitutional: WD/WN, vitals as above comfortable abdomen soft non- tender incision clean dry and intact tent discharge in AM Results & Data Vital Signs (Past 12 Hours) Vital Signs Temp Pulse Pulse Resp BP BP Pulse Ox 10/23/19 07:50 36.5 C 78 18 113/69 97 10/22/19 23:00 36.6 C 75 18 108/65 97
[2019-10-23] MEDS ORDERED: bisacodyL 10 MG SUPP PR PRN (19:14)
[2019-10-24] MEDS: SIMETHICONE 80 MG CHEW PO SCH (08:30)
[2019-10-24] MEDS: DOCUSATE SODIUM 100 MG CAP PO SCH (08:30)
[2019-10-24] MEDS: PRENATAL VITAMIN 1 TAB PO SCH (08:31)
[2019-10-24] MEDS: IBUPROFEN 600 MG TAB PO PRN (08:31)
[2019-10-24] MEDS: FERROUS SULFATE 325 MG TAB PO SCH (08:31)
[2019-10-24] MEDS: OXYCODONE/ACETAMINOPHEN 5mg/325mg TAB PO PRN (08:32)
--- NOTE | 2019-10-24 09:39 | Surgery Progress Note ---
Date of Service October 24, 2019 Subjective POD#3 doing well out of bed ambulating tolerating diet passing gas Physical Exam Constitutional: WD/WN, vitals as above comfortable incision clean dry and intact abdomen soft non-tender no edema neg Suzie's for d/c Results & Data Vital Signs (Past 12 Hours) Vital Signs Temp Pulse Resp BP Pulse Ox 10/24/19 08:00 36.5 C 88 18 119/72 97 10/24/19 00:45 36.7 C 84 18 114/73 Laboratory Results Laboratory Results - last 72 hr 10/21/19 10/21/19 10/21/19 16:17 17:03 18:15 WBC 10.95 H RBC 3.50 L Hgb 11.5 L Hct 33.6 L MCV 96.0 MCH 32.9 MCHC 34.2 RDW Std Deviation 56.2 H RDW Coeff of Jim 16.0 H Plt Count 168 MPV 9.8 Immature Gran % (Auto) Neut % (Auto) Lymph % (Auto) Parmer % (Auto) Eos % (Auto) Baso % (Auto) Immature Gran # (Auto) Neut # (Auto) Lymph # (Auto) Parmer # (Auto) Eos # (Auto) Baso # (Auto) Cord ABG pH 7.29 Cord ABG pCO2 55 Cord ABG pO2 26 Cord ABG HCO3 26 Cord ABG Base Excess -1.4 Cord ABG O2 Sat < 60.0 Cord VBG pH Cord VBG pCO2 Cord VBG pO2 Cord VBG HCO3 Cord VBG Base Excess Cord VBG O2 Sat Barometric Pressure 722.0 Blood Gas Comments SEGURA POC Glucose 91 10/21/19 10/21/19 10/22/19 18:15 22:47 06:40 WBC 10.07 RBC 3.03 L Hgb 10.3 L 10.0 L Hct 30.2 L 29.0 L MCV 95.7 MCH 33.0 MCHC 34.5 RDW Std Deviation 57.2 H RDW Coeff of Jim 16.3 H Plt Count 156 MPV 9.7 Immature Gran % (Auto) 0.4 Neut % (Auto) 75.9 Lymph % (Auto) 19.0 Parmer % (Auto) 4.3 Eos % (Auto) 0.3 Baso % (Auto) 0.1 Immature Gran # (Auto) 0.04 H Neut # (Auto) 7.65 H Lymph # (Auto) 1.91 Parmer # (Auto) 0.43 Eos # (Auto) 0.03 Baso # (Auto) 0.01 Cord ABG pH Cord ABG pCO2 Cord ABG pO2 Cord ABG HCO3 Cord ABG Base Excess Cord ABG O2 Sat Cord VBG pH 7.35 Cord VBG pCO2 45 Cord VBG pO2 38 Cord VBG HCO3 25 Cord VBG Base Excess -1.2 Cord VBG O2 Sat 76.0 H Barometric Pressure 722.1 Blood Gas Comments SEGURA POC Glucose 10/23/19 05:57 WBC RBC Hgb 8.2 L Hct 24.3 L MCV MCH MCHC RDW Std Deviation RDW Coeff of Jim Plt Count MPV Immature Gran % (Auto) Neut % (Auto) Lymph % (Auto) Parmer % (Auto) Eos % (Auto) Baso % (Auto) Immature Gran # (Auto) Neut # (Auto) Lymph # (Auto) Parmer # (Auto) Eos # (Auto) Baso # (Auto) Cord ABG pH Cord ABG pCO2 Cord ABG pO2 Cord ABG HCO3 Cord ABG Base Excess Cord ABG O2 Sat Cord VBG pH Cord VBG pCO2 Cord VBG pO2 Cord VBG HCO3 Cord VBG Base Excess Cord VBG O2 Sat Barometric Pressure Blood Gas Comments POC Glucose
== END 2019-10-24 11:04 | disposition home or self-care (01) | DRG 788 ==
LOC: OPB 10:09 → 4S1 10:12 → 4S2 22:42